=== PATIENT | female | born 1945 | race Caucasian/White ===

== ENCOUNTER → 2023-11-15 10:26 | Outpatient (REF) | payer MEDICARE, OTHER, SELFPAY | LOC: HWRCS 10:26 | PROVIDERS: ATTENDING PHYSICIAN Internal Medicine Cardiovascular Disease; FAMILY PHYSICIAN Family Medicine | DX: I48.91 Unspecified atrial fibrillation (principal); R60.0 Localized edema; Z95.0 Presence of cardiac pacemaker; Z79.899 Other long term (current) drug therapy; R06.02 Shortness of breath; E05.90 Thyrotoxicosis, unspecified without thyrotoxic crisis or storm | CPT/HCPCS: 71046; 93306 ==

== ENCOUNTER 2024-02-23 12:06 | Emergency (ER) | payer MEDICARE, OTHER, SELFPAY ==
[2024-02-23] VITALS (8 sets, daily range): BP systolic 108–185; BP diastolic 67–107; BMI 35.4
--- NOTE | 2024-02-23 12:47 | ED.GENMED ---
Addendum entered and electronically signed by Amber Ansari NP 02/26/24 15:06:
C&S results in. Called to speak with pt, she was not available so spoke with . He states she was recently on Amoxicillin for UTI few weeks ago. Our lead pharmacy technician saw that on 02/15 she was started on Amoxicillin 500 mg QID for 8 days.
He confirms that pt is asymptomatic and she has appointment with Dr. Soni in [address] Soni is aware of her resistance to antibiotics with UTI. Since asymptomatic bacteriuria, I will hold off on antibiotics for now and they will discuss with .
Zachariah next week
Discussed if symptoms start to contact Dr. Soni and she may then need antibiotic then.
Original Note:
History of Present Illness
General
Chief Complaint: Head Injury
Source: patient
Exam Limitations: none
Time Seen by Provider: 02/23/24 12:28
Nursing documentation reviewed up to this point in time: agreed with
History of Present Illness
History of Present Illness:
Patient with history of chronic atrial fibrillation on Eliquis, presents to ED for evaluation after head injury 2 days ago, while she was vacationing. Patient states that she was sitting on a couch when she leaned forward to grab an object and lost
balance, falling forward and hitting her forehead against tile floor. Patient did not lose consciousness. Patient experienced mild headache but was able to function for the rest of the day. Yesterday, patient states that she felt mild neck pain,
shoulder pain, and tingling sensation in both arms. Today, when she woke up from sleep, she felt not like herself and tired, queasy and more unsteady when ambulating compared to her baseline. Denies blurred vision. Denies weakness. Denies
difficulty with speech. Patient did not take Eliquis this morning, as she did not feel good. Patient has had urinary tract infection in the past, including 2 months ago, when she experienced urinary frequency along with dysuria, which she is not
experiencing currently. Denies recent illness. Denies recent change in medications or diet.
Past History
Past History
ED Past Medical History: Arrthythmia (afib), GERD, HTN and Other (restless leg syndrome)
ED Past Surgical History: Appendectomy and Cholecystectomy
Social History
Tobacco: Former smoker
Drug: None
Personal:
Living: with family
Employment: Employed
Family History
Family History: Other
Review of Systems
Review of Systems
Allergies reviewed?: Yes
All Other Systems: ROS reviewed and negative except as documented in HPI and ROS
Constitutional: Reports no symptoms
EENT: Reports no symptoms
Respiratory: Reports no symptoms
Cardiac: Reports no symptoms
ABD/GI: Reports no symptoms
: Reports no symptoms
Musculoskeletal: Reports neck pain and back pain
Skin: Reports no symptoms
Neurological: Reports dizzy, headache and numbness; Denies weakness
Phy Exam
Physical Exam
Physical Exam:
Physical Exam
General: no apparent distress, not acutely ill. afebrile.
Head: no midline tenderness. normal range of motion
Neck: supple. no meningeal signs.
Heart: s1/s2 regular rate and rhythm, no murmur. equal radial pulses.
Lungs: no acute respiratory distress. clear bilaterally
Abdomen: normal bowel sounds. not tender.
Neuro: alert and oriented. no focal neurological deficits
Skin: no rash
Psychiatric: well kept. interactive and cooperative
Extremities: LE b/l edema, nonpitting. no calf tenderness.
Course
Orders/Labs/Results
Orders:
Orders
02/23/24 12:38
Electrocardiogram (*1) Urgent
Reason for Study: Fatigue / Weakness
CT Cervical Spine W/o Iv Contr Urgent
Comment:
Reason For Exam: trauma
CT Head W/o Iv Contrast Urgent
Comment:
Reason For Exam: trauma to frontal scalp
EKG- Treatment ONCE
02/23/24 12:48
Complete Blood Count/No Diff Urgent
Comprehensive Metabolic Panel Urgent
Magnesium Urgent
Troponin I Urgent
02/23/24 13:47
0.9% Sodium Chloride 500 ml [Nss] 500 ml IV BOLUS
Potassium Chloride [KCl] 20 meq PO NOW STA
02/23/24 14:19
Urinalysis Reflex To Culture Urgent
Date Specimen was Collected: 02/23/24
Time Specimen was Collected: 14:16
Urine Microscopic Reflex Cult Urgent
Urine Culture Urgent
JANE Source: U
Specimen Description:
Date Specimen was Collected: 02/23/24
Time Specimen was Collected: 14:16
Abnormal Lab Results
02/23/24 02/23/24
12:48 14:19
Hgb 11.7 L g/dL
(12.0-16.0)
Hct 36.7 L %
(37.0-47.0)
MCHC 31.9 L g/dL
(33.0-37.0)
RDW 15.1 H %
(11.5-14.5)
Potassium 3.4 L mmol/L
(3.5-5.1)
BUN 19 H mg/dl
(7-17)
Glucose 151 H mg/dl
(70-99)
Ur Occult Blood Reflex 3+ A
(Negative)
Leukocyte Esterase Rfl 2+ A
(Negative)
Urine WBC (Reflex) >100 A /HPF
(0-5)
Urine Bacteria (Reflex) Many A
(Negative)
Urine Albumin (Reflex) 1+ A
(Neg - Trace)
02/23/24 12:48
02/23/24 12:48
Vital Signs
Initial and Last Documented VS:
Initial Vital Signs
Temp Pulse Resp BP Pulse Ox
99 F 82 18 185/107 99
02/23/24 12:09 02/23/24 12:09 02/23/24 12:09 02/23/24 12:09 02/23/24 12:09
Last Documented Vital Signs
Temp Pulse Resp BP Pulse Ox
99 F 64 15 138/78 96
02/23/24 12:09 02/23/24 15:45 02/23/24 15:30 02/23/24 15:30 02/23/24 15:45
MDM/Problems Addressed
MDM/Problems Addressed:
CT head: NAD.
Pacemaker interrogated -episode of atrial tachycardia noted. Discussed with on-call hand turner, Dr. Jacobs, who reviewed patient's office notes, including previous interrogation reports. Does not feel that patient's tachycardic events from
this morning, is the reasons for patient's presentation, as she has had ongoing tachycardic events in the recent past. Cardiology office will reach out to patient for an outpatient consultation.
Patient otherwise remains afebrile, hemodynamically stable, and neurologically intact, and nontoxic-appearing. Patient's presenting symptoms likely secondary to delayed postconcussive symptom patient will be discharged home in stable condition, to
the care of her family, with recommendation to follow-up with PCP for reevaluation as an outpatient.
Prior to discharge, initial urinalysis result discussed with patient. As patient currently does not have any UTI symptoms, i.e. urinary frequency/dysuria, prefers to wait for urine culture result to become available, prior to initiating
antibiotics, which I believe is reasonable.
Urine culture pending.
*EKG
Interpreted by ED Provider?: Yes
EKG Intrepretation Date: 02/23/24
Heart Rate: 62
Rate: normal
Rhythm: ventricular paced
[place]: normal axis
Interval: normal interval
*Critical Care Note
Total Time (30-74mins, 75-104mins- exclusive of procedures): Not Applicable
ED Attending Note
-
Portions of this chart may have been created with voice recognition software.� Occasional wrong word or��sound alike� substitutions may have occurred due to the inherent limitations of voice recognition software.
Discharge Plan
Departure
Patient Disposition: Home (Routine Discharge)
Date of Disposition: 02/23/24
Time of Disposition: 15:45
Patient with high blood pressure during this ER visit?: Yes
Discharge Problem:
Head injury
Instructions: Concussion, Adult (DC), Head Injury in Adults (DC)
Prescriptions:
No Action
acebutolol 200 MG capsule
200 mg PO DAILY
pantoprazole 40 MG tablet,delayed release (DR/EC)
40 mg PO DAILY
furosemide 20 MG tablet
40 mg PO BID
escitalopram oxalate 10 MG tablet
10 mg PO DAILY
apixaban [Eliquis] 5 MG tablet
5 mg PO BID Qty: 28 0RF
clonazepam 1 MG tablet
1 mg PO .Q48H@HS
pramipexole 0.5 MG tablet
0.5 mg PO DAILY
zolpidem 5 MG tablet
5 mg PO .Q48H@HS
lisinopril [Prinivil] 40 MG tablet
40 mg PO DAILY
amlodipine 10 MG tablet
10 mg PO DAILY
Referrals:
Hoang Soni MD [Family Provider] -
Activity Restrictions/Additional Instructions:
As discussed, please follow-up with your primary care physician for reevaluation next week.
Interventions
Interventions:
*Risk Screen - Suicide Last Done: 02/23/24 12:09
*General Assessment Last Done: 02/23/24 12:09
*Neglect/Abuse Screening Last Done: 02/23/24 12:09
*Nursing Disposition Last Done: 02/23/24 16:06
ED- Neurological Assessment Last Done: 02/23/24 12:30
ED-Skin Assessment Last Done: 02/23/24 12:30
Discharge Date and Time
Discharge Date/Time: 02/23/24 16:07
Print Language: LIBYAN
[2024-02-23 13:21] LABS: Hematocrit 36.7 % (37.0-47.0); Hemoglobin 11.7 g/dL (12.0-16.0); Mean Corp Hgb Conc. 31.9 g/dL (33.0-37.0); Mean Corpuscular Volume 84.8 fL (81.0-99.0); Mean Platelet Volume 8.7 fL (7.4-10.4); Platelet Count 285 10^3/uL (130-400); Red Blood Cell Count 4.33 10^6/uL (4.20-5.40); Red Cell Dist. Width 15.1 % (11.5-14.5); White Blood Cell Count 7.9 10^3/uL (4.8-10.8)
[2024-02-23 13:38] LABS: ALT (SGPT) 26 U/L (0-35); AST (SGOT) 35 U/L (14-36); Albumin 4.1 g/dl (3.5-5.0); Alkaline Phosphatase 73 U/L (38-126); Blood Urea Nitrogen 19 mg/dl (7-17); Calcium 9.3 mg/dl (8.4-10.2); Carbon Dioxide 28 mmol/L (22-30); Chloride 104 mmol/L (98-107); Estimated Creatinine Clearance 56 ml/min; Glucose 151 mg/dl (70-99); Magnesium 1.8 mg/dl (1.6-2.3); Potassium 3.4 mmol/L (3.5-5.1); Sodium 140 mmol/L (135-145); Total Bilirubin 0.8 mg/dl (0.2-1.3); Total Protein 6.7 g/dl (6.3-8.2); eGFR 58.02
[2024-02-23 13:41] LABS: Troponin I < 0.012 ng/ml
[2024-02-23] MEDS: NSS 500 IV (14:25)
[2024-02-23] MEDS: KCL 20 MEQ PO (14:26)
[2024-02-23 14:54] LABS: Urine Albumin 1+ (Neg - Trace); Urine Bilirubin Negative (Negative); Urine Character Very Cloudy (Clear); Urine Color Yellow; Urine Glucose Negative (Negative); Urine Ketone Negative (Negative); Urine Leukocyte 2+ (Negative); Urine Nitrite Negative (Negative); Urine Occult Blood 3+ (Negative); Urine Urobilinogen Negative (Neg - 1+)
[2024-02-23 15:07] LABS: Urine Bacteria Many (Negative); Urine Squamous Cell SEEN /LPF (Few); Urine White Cell >100 /HPF (0-5)
[2024-02-23 15:09] LABS: Urine Red Blood Cell None Seen /HPF (0-2)
== END 2024-02-23 16:07 | disposition home or self-care (01) ==
LOC: EMR 12:06
PROVIDERS: EMERGENCY PHYSICIAN Emergency Medicine; FAMILY PHYSICIAN Family Medicine
DX: S09.90XA Unspecified injury of head, initial encounter (principal); W01.0XXA Fall on same level from slipping, tripping and stumbling without subsequent striking against object, initial encounter; I10 Essential (primary) hypertension; I48.20 Chronic atrial fibrillation, unspecified; Z79.01 Long term (current) use of anticoagulants; Z87.891 Personal history of nicotine dependence; Z95.0 Presence of cardiac pacemaker
CPT/HCPCS: 99285; 96360; 93288; 70450; 72125; 80053; 81003; 81015; 83735; 84484; 85027; 87077; 87086; 87186; 93005

== ENCOUNTER 2024-03-29 18:45 | Emergency (ER) | payer MEDICARE, OTHER, SELFPAY ==
[2024-03-29 18:45] VITALS: BMI 35.9
[2024-03-29 18:47] VITALS: BP 184/113
[2024-03-29 19:19] LABS: % Basophils 0.6 % (0-2); % Eosinophils 2.9 % (0-6); % Immature Granulocytes 0.4 % (0-0.5); % Neutrophils 71.1 % (42.2-75.2); Absolute Basophils 0.1 10^3/uL (0-0.2); Absolute Eosinophils 0.3 10^3/uL (0-0.7); Absolute Lymphocytes 1.6 10^3/uL (1.2-3.4); Absolute Monocytes 0.5 10^3/uL (0.1-0.6); Absolute Neutrophils 6.1 10^3/uL (1.4-6.5); Hematocrit 37.9 % (37.0-47.0); Mean Corp Hgb Conc. 31.7 g/dL (33.0-37.0); Mean Corpuscular Hgb 27.3 pg (27.0-31.0); Mean Corpuscular Volume 86.3 fL (81.0-99.0); Mean Platelet Volume 8.6 fL (7.4-10.4); Nucleated Red Blood Cells % 0 %; Platelet Count 292 10^3/uL (130-400); Red Blood Cell Count 4.39 10^6/uL (4.20-5.40); Red Cell Dist. Width 14.8 % (11.5-14.5); White Blood Cell Count 8.6 10^3/uL (4.8-10.8)
[2024-03-29 19:21] LABS: Urine Albumin Trace (Neg - Trace); Urine Bilirubin Negative (Negative); Urine Character Clear (Clear); Urine Color Yellow; Urine Glucose Negative (Negative); Urine Ketone Negative (Negative); Urine Leukocyte Trace (Negative); Urine Nitrite Negative (Negative); Urine Occult Blood 2+ (Negative); Urine Specific Gravity 1.015 (<1.030); Urine Urobilinogen Negative (Neg - 1+)
[2024-03-29 19:38] LABS: ALT (SGPT) 38 U/L (0-35); AST (SGOT) 46 U/L (14-36); Albumin 4.5 g/dl (3.5-5.0); Alkaline Phosphatase 88 U/L (38-126); Blood Urea Nitrogen 16 mg/dl (7-17); Calcium 9.6 mg/dl (8.4-10.2); Carbon Dioxide 31 mmol/L (22-30); Chloride 101 mmol/L (98-107); Glucose 117 mg/dl (70-99); Lipase 103 U/L (23-300); Potassium 4.1 mmol/L (3.5-5.1); Sodium 144 mmol/L (135-145); Total Bilirubin 0.9 mg/dl (0.2-1.3); Total Protein 7.5 g/dl (6.3-8.2); eGFR 51.75
[2024-03-29 19:40] LABS: Urine Squamous Cell 21-25 /LPF (Few)
[2024-03-29 19:42] LABS: Urine Bacteria Few (Negative)
[2024-03-29 21:56] VITALS: BP 160/83
[2024-03-29 21:59] VITALS: BP 160/83
[2024-03-29 22:00] VITALS: BP 158/79
--- NOTE | 2024-03-29 22:17 | ED.GENMED ---
History of Present Illness
General
Chief Complaint: Flank Pain
Time Seen by Provider: 03/29/24 21:47
History of Present Illness
History of Present Illness:
78-year-old female with history of hypertension, hyperlipidemia, A-fib on Eliquis, mental health presenting to the emergency department for abdominal pain. Patient reports that at 3 pm started to have lower abdominal pain that wraps across her
abdomen and into her flank. She went to urgent care, and had her urine tested that showed some blood in her urine. She was told to come to the hospital for further evaluation. Denies any history of kidney stones. Reports history of appendectomy
in the past, as well as tubal ligation. Denies chest pain or difficulty breathing. Does report an episode of vomiting. Reports some constipation, however had a normal bowel movement today. Denies any fever. Reports that her pain has improved,
did not take any medication for pain prior to arrival. Denies additional acute medical complaints
Past History
Past History
ED Past Medical History: Arrthythmia (afib), GERD, HTN and Other (restless leg syndrome)
ED Past Surgical History: Appendectomy and Cholecystectomy
Social History
Tobacco: Former smoker
Drug: None
Personal:
Living: with family
Employment: Employed
Family History
Family History: Other
Phy Exam
Physical Exam
Physical Exam:
General: Well-appearing, no clinical signs of dehydration, nontoxic and in no acute distress
HEENT: protecting airway
Neck: appears supple
CV: Normal heart rate, regular rhythm, no evidence of cyanosis
Resp: No accessory muscle use, no increased work of breathing, lungs clear to auscultation bilaterally
Abd: Soft and non-distended, generalized tenderness to lower abdomen, no rebound or guarding, no CVA tenderness
Extremities: No deformities, no swelling
Neuro: alert, no focal neurologic deficit
: deferred
Rectal: deferred
Psych: Normal affect
Skin: Intact
Course
Orders/Labs/Results
Orders:
Orders
03/29/24 18:56
Complete Blood Count/With Diff Urgent
Comprehensive Metabolic Panel Urgent
Lipase Urgent
03/29/24 19:03
Urinalysis Reflex To Culture Urgent
Date Specimen was Collected: 03/29/24
Time Specimen was Collected: 18:50
Urine Microscopic Reflex Cult Urgent
03/29/24 22:05
CT Abd/pelvis W Iv Cont Urgent
Comment:
Reason For Exam: right sided pain, hematuria, hx appe
Abnormal Lab Results
03/29/24 03/29/24
18:56 19:03
MCHC 31.7 L g/dL
(33.0-37.0)
RDW 14.8 H %
(11.5-14.5)
Lymphocytes % 19.0 L %
(20.5-51.1)
Carbon Dioxide 31 H mmol/L
(22-30)
Creatinine 1.1 H mg/dL
(0.6-1.0)
Glucose 117 H mg/dl
(70-99)
AST 46 H U/L
(14-36)
ALT 38 H U/L
(0-35)
Ur Occult Blood Reflex 2+ A
(Negative)
Leukocyte Esterase Rfl Trace A
(Negative)
Urine RBC 7-10 A /HPF
(0-2)
Urine Bacteria (Reflex) Few A
(Negative)
03/29/24 18:56
03/29/24 18:56
Vital Signs
Initial and Last Documented VS:
Initial Vital Signs
Temp Pulse Resp BP Pulse Ox
98.2 F 85 16 184/113 98
03/29/24 18:47 03/29/24 18:47 03/29/24 18:47 03/29/24 18:47 03/29/24 18:47
Last Documented Vital Signs
Temp Pulse Resp BP Pulse Ox
98.2 F 71 20 147/78 98
03/29/24 18:47 03/30/24 01:47 03/30/24 01:47 03/30/24 01:47 03/30/24 01:47
MDM/Problems Addressed
MDM/Problems Addressed:
78-year-old female with history of hypertension, hyperlipidemia, mental health presenting to the emergency department for lower abdominal pain. Vital signs on arrival significant for hypertension.
On exam, patient is overall well-appearing, notes that her pain has improved since arrival to the hospital. Differential considerations include nephrolithiasis versus UTI versus enteritis versus constipation. Patient may have potentially passed a
stone given improvement of pain. Labs obtained upon arrival, without leukocytosis. Urine without significant sign of infection, does show hematuria. Given mild tenderness on exam and presenting symptoms, will obtain CT abdominal imaging of the
abdomen
01:20 -CT without acute process. On reassessment, patient resting comfortably, remains pain-free. Feel stable for discharge with continued outpatient follow-up and supportive therapy. Return precautions discussed patient verbalized understanding
*Critical Care Note
Total Time (30-74mins, 75-104mins- exclusive of procedures): Not Applicable
ED Attending Note
-
Portions of this chart may have been created with voice recognition software.� Occasional wrong word or��sound alike� substitutions may have occurred due to the inherent limitations of voice recognition software.
Discharge Plan
Departure
Patient Disposition: Home (Routine Discharge)
Date of Disposition: 03/30/24
Time of Disposition: 01:26
Patient with high blood pressure during this ER visit?: Yes
Condition: Good
Discharge Problem:
Abdominal pain
Instructions: Flank Pain (DC), Abdominal Pain, BLOOD PRESSURE
Prescriptions:
No Action
acebutolol 200 MG capsule
200 mg PO DAILY
pantoprazole 40 MG tablet,delayed release (DR/EC)
40 mg PO DAILY
furosemide 20 MG tablet
40 mg PO BID
escitalopram oxalate 10 MG tablet
10 mg PO DAILY
apixaban [Eliquis] 5 MG tablet
5 mg PO BID Qty: 28 0RF
clonazepam 1 MG tablet
1 mg PO .Q48H@HS
pramipexole 0.5 MG tablet
0.5 mg PO DAILY
zolpidem 5 MG tablet
5 mg PO .Q48H@HS
lisinopril [Prinivil] 40 MG tablet
40 mg PO DAILY
amlodipine 10 MG tablet
10 mg PO DAILY
Referrals:
Hoang Soni MD [Family Provider] -
Activity Restrictions/Additional Instructions:
You were seen in the emergency department for abdominal pain
You were found to have normal laboratory analysis and CT imaging of your abdomen
Please follow-up closely with your primary care physician.
Return to the emergency department for any worsening of your symptoms, or any development of chest pain, difficulty breathing, abdominal pain with persistent vomiting and inability to tolerate food or liquid by mouth (concern for dehydration),
weakness, headache or confusion, fever greater than 100.4, or any additional symptoms that are concerning to you.
Thank you for choosing [facility].
Interventions
Interventions:
*Risk Screen - Suicide Last Done: 03/29/24 18:47
*General Assessment Last Done: 03/30/24 01:48
*Neglect/Abuse Screening Last Done: 03/30/24 01:48
ED- Fall Risk Assessment Last Done: 03/30/24 01:48
*ED COVID-19 Vaccine History Last Done: 03/30/24 01:48
*Nursing Disposition Last Done: 03/30/24 01:48
JA-Xodhqn-Jsddqbgsdn Assessment Last Done: 03/29/24 22:00
ED-Female Genitourinary Assessment Last Done: 03/29/24 22:00
Discharge Date and Time
Discharge Date/Time: 03/30/24 01:49
Print Language: MALTESE
[2024-03-29 23:00] VITALS: BP 154/79
[2024-03-30 01:47] VITALS: BP 147/78
== END 2024-03-30 01:49 | disposition home or self-care (01) ==
LOC: EMR 18:45
PROVIDERS: Emergency Medicine; EMERGENCY PHYSICIAN Student in an Organized Health Care Education/Training Program; FAMILY PHYSICIAN Family Medicine
DX: R10.30 Lower abdominal pain, unspecified (principal); R31.9 Hematuria, unspecified; R11.10 Vomiting, unspecified; I10 Essential (primary) hypertension; I48.91 Unspecified atrial fibrillation; E78.5 Hyperlipidemia, unspecified; G25.81 Restless legs syndrome; K21.9 Gastro-esophageal reflux disease without esophagitis; Z79.01 Long term (current) use of anticoagulants; Z90.49 Acquired absence of other specified parts of digestive tract; Z87.891 Personal history of nicotine dependence
CPT/HCPCS: 99284; 74177; 80053; 81003; 81015; 83690; 85025; Q9967

== ENCOUNTER → 2025-05-02 13:36 | Outpatient (REF) | payer MEDICARE, OTHER, SELFPAY | LOC: MRI 13:36 | PROVIDERS: ATTENDING PHYSICIAN Physical Medicine & Rehabilitation; FAMILY PHYSICIAN Family Medicine | DX: M54.16 Radiculopathy, lumbar region (principal) | CPT/HCPCS: 72148 ==